=== PATIENT | female | born 2000 | race Caucasian/White ===

== ENCOUNTER 2023-02-11 10:41 | Emergency (ER) | payer OTHER ==
[~2023-02-11] VITALS: Ht 160 cm; Wt 59.0 kg
--- NOTE | 2023-02-11 11:10 | NUR ---
seen and examined by MD Blanco
[2023-02-11] MEDS ORDERED: CEPH500T PO (11:33)
[2023-02-11 11:37] VITALS: BP 122/70
--- NOTE | 2023-02-11 11:38 | NUR ---
Patient discharged to home in stable condition. Written and verbal after care instructions given. Patient verbalizes understanding of instructions. Stressed follow up or return to ER for worsening s/s.
== END 2023-02-11 11:38 | disposition home or self-care (01) ==
LOC: ER 10:41
DX: L73.9 Follicular disorder, unspecified (principal); L03.115 Cellulitis of right lower limb
CPT/HCPCS: A4663